=== PATIENT | female | born 1945 | race Caucasian/White ===

== ENCOUNTER 2017-07-18 23:16 | Emergency (ER) | payer OTHER ==
[~2017-07-18] VITALS: Ht 157.5 cm; Wt 92.3 kg
[~2017-07-18 23:16] MED LIST: ACIPHEX20 MG PO; ASPIRIN81 M2 PO; FLEXERIL10 MG PO; GLYBURIDE2.5 MG PO; LISINOPRIL20 MG PO; METFORMIN HCL500 MG PO; NITROFURANTOIN100 MG PO; PLAVIX75 MG PO; SIMVASTATIN40 MG PO; ULTRAM50 MG PO; VESICARE10 MG PO; [UNRECOGNIZED DRUG - REMARK] PO; leg cramps PO
[2017-07-19 00:13] VITALS: BP 124/56
== END 2017-07-19 00:47 | disposition home or self-care (01) ==
LOC: EME 23:16
DX: M25.522 Pain in left elbow (principal); S46.912A Strain of unspecified muscle, fascia and tendon at shoulder and upper arm level, left arm, initial encounter; X58.XXXA Exposure to other specified factors, initial encounter; E11.9 Type 2 diabetes mellitus without complications; Z79.84 Long term (current) use of oral hypoglycemic drugs; Z86.73 Personal history of transient ischemic attack (TIA), and cerebral infarction without residual deficits; Z85.038 Personal history of other malignant neoplasm of large intestine; Z79.02 Long term (current) use of antithrombotics/antiplatelets; Z79.82 Long term (current) use of aspirin; Z87.891 Personal history of nicotine dependence
CPT/HCPCS: 99281; 99284